=== PATIENT | female | born 1990 | race Caucasian/White ===

== ENCOUNTER 2022-08-07 06:55 | Emergency (ER) | payer OTHER ==
[2022-08-07 07:12] VITALS: BP 133/78
--- NOTE | 2022-08-07 07:23 | ED Physician Documentation ---
History of Present Illness - Stated complaint Stated Complaint: RT WRIST SWELLING/PX - Chief complaint Chief Complaint: Ext Problem - Additonal information Additional information: Patient 32-year-old female presenting to the emergency department with right wrist pain. Symptoms ongoing x1-1/2 months but worse since Saturday, 3 days ago. Reports swelling, pain, decreased strength in the affected hand. 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 Contacted nurse hotline and was instructed to come to the emergency department.Denies fever, chills, chest pain, shortness of breath, abdominal pain, nausea, vomiting, diarrhea, constipation. Review of Systems Constitutional: denies: Fever Eyes: denies: Loss of vision Ears: denies: Loss of hearing Nose: denies: Rhinorrhea / runny nose Throat: denies: Dental pain / toothache Cardiac: denies: Chest pain / pressure Respiratory: denies: Dyspnea : denies: Dysuria Skin: denies: Rash PD PAST MEDICAL HISTORY - Present Medications Home Medications: Ambulatory Orders Medication Instructions Recorded Confirmed Levothyroxine Sodium [Synthroid] 100 mcg PO DAILY 08/07/22 08/07/22 oxyCODONE [Roxicodone] 5 mg PO ONCE PRN #10 tablet 08/07/22 - Allergies Allergies/Adverse Reactions: Allergies Allergy/AdvReac Type Severity Reaction Status Date / Time amoxicillin Allergy Rash Verified 08/07/22 07:12 PD ED PE NORMAL - Vitals Vital signs reviewed: Yes (WNL) - General General: Alert and oriented X 3 - HEENT HEENT: Atraumatic - Respiratory Respiratory: No respiratory distress - Extremities Extremities: Other (Soft tissue swelling, dorsum of wrist. Normal pulses. Normal flexion, extension, radial and ulnar deviation. Normal capillary refill. Normal sensation in distal dermatomes.) Results - Vitals Vitals: Vital Signs - 24 hr 08/07/22 07:07 Temperature 36.4 C L Heart Rate 78 Respiratory 20 Rate Blood Pressure 133/78 H O2 Saturation 99 Oxygen O2 Source Room air PD Medical Decision Making - ED course Complexity details: reviewed results, d/w patient ED course: Patient presents to the emergency department with 1-1/2-month right wrist pain worse x2 days. Afebrile, hemodynamically stable. Initial differential diagnosis included but not limited to carpal tunnel, musculoskeletal strain, septic joint, inflammatory arthropathy, fracture. Soft tissue swelling noted at the dorsum of the wrist without erythema or rubor that would be of imminent concern for an infectious or inflammatory cause to the patient's symptoms. Patient able to flex, extend, radial and knee and ulnarly deviate the hand without significant pain. X-rays per my initial interpretation negative for acute fracture. Patient provided Velcro wrist splint here in the emergency department.Will discharge for follow-up with primary care/orthopedic hand service as needed. Patient provided work note. Provided instructions for use nonsteroidal anti- inflammatories, acetaminophen as well as a very small number of oxycodone for management of nighttime pain. Instructed in importance of elevation and ice packs to manage soft tissue swelling. Clear return precautions given. Departure - Departure Disposition: 01 Home, Self Care Clinical Impression: Wrist pain Qualifiers: Laterality: right Qualified Code(s): M25.531 - Pain in right wrist Follow-Up: Marvin Michaud MD [Provider Admit Priv/Credential] - Prescriptions: oxyCODONE [Roxicodone] 5 mg PO ONCE PRN #10 tablet PRN Reason: Minor Pain Comments: Thank you for allowing us to care for you today at [facility]. Today in the emergency department your evaluated for any possible life- threatening medical emergency. The x-rays taken today did not show any fracture or dislocation to the bones in your wrist. There are no signs of infection involving the joint. As we discussed I would like you to follow-up carefully with both your primary care doctor as well as with an mental health program specialist. Their contact information is included in this discharge packet. I do recommend regular alternating acetaminophen and ibuprofen at home for pain control. You can alternate every 4 hours between 650 mg of acetaminophen and 600 mg of ibuprofen. I have also written you for a small number of a stronger narcotic pain medication known as Roxicodone. This medication is both habit- forming and sedating. 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 This medication cannot be refilled from the emergency department. If it anytime you develop any new or worsening symptoms please not hesitate to return. Forms: Activity restrictions
--- NOTE | 2022-08-07 08:15 | XRAY Report ---
PROCEDURE: Hand 3 View RT INDICATIONS: Trauma PRIORS: NONE TRAUMA; PT STATES NO TRAUMA WOKE UP WITH PAIN THE RADIATES FROM HER WRIST TO THE TIPS OF HER FINGERS TECHNIQUE: 3 views of the hand(s) acquired. COMPARISON: None. FINDINGS: Bones: No fractures or dislocations. No suspicious bony lesions. Soft tissues: No suspicious soft tissue calcifications or masses. IMPRESSION: No acute right hand fracture or dislocation. Findings are concordant with preliminary interpretation provided by [facility]. Reviewed by: Reginaldo Lanier MD on 08/07/2022 8:14 AM PDT Approved by: Reginaldo Lanier MD on 08/07/2022 8:14 AM PDT Station ID: [id number]
--- NOTE | 2022-08-07 08:17 | XRAY Report ---
PROCEDURE: Wrist 4 View RT INDICATIONS: Trauma PRIORS: NONE TRAUMA; PT STATES NO TRAUMA WOKE UP WITH PAIN THE RADIATES FROM HER WRIST TO THE TIPS OF HER FINGERS TECHNIQUE: 4 views of the wrist were acquired. COMPARISON: None. FINDINGS: Bones: No fractures or dislocations. No suspicious bony lesions. Scaphoid view: Unremarkable. Soft tissues: No suspicious soft tissue calcifications or masses. IMPRESSION: No acute bony abnormality. Findings are concordant with preliminary interpretation provided by [facility]. Reviewed by: Reginaldo Lanier MD on 08/07/2022 8:15 AM PDT Approved by: Reginaldo Lanier MD on 08/07/2022 8:15 AM PDT Station ID: [id number]
== END 2022-08-07 08:05 | disposition home or self-care (01) ==
LOC: ED 06:55
DX: M25.531 Pain in right wrist (principal)
CPT/HCPCS: 99283